=== PATIENT | male | born 1980 | race Caucasian/White ===

== ENCOUNTER 2017-11-06 18:58 | Emergency (ER) | payer MEDICAID ==
[~2017-11-06] VITALS: Ht 177.8 cm; Wt 88.5 kg
[~2017-11-06 18:58] MED LIST: IBUP-23 PO
[2017-11-06 19:05] VITALS: BP_SYST 154
[2017-11-06] MEDS ORDERED: KETOROLAC TROMETHAMINE 30 MG VIAL IVP ONE (19:45)
[2017-11-06] MEDS ORDERED: NACL 0.9% 1,000 ML IV ONE (19:45)
[2017-11-06 20:58] VITALS: BP_SYST 143
== END 2017-11-06 20:58 | disposition home or self-care (01) ==
LOC: SED 18:58
DX: J02.8 Acute pharyngitis due to other specified organisms (principal); B97.89 Other viral agents as the cause of diseases classified elsewhere; R03.0 Elevated blood-pressure reading, without diagnosis of hypertension; G43.909 Migraine, unspecified, not intractable, without status migrainosus
CPT/HCPCS: 36415; 86403; 86710; 87081; 96361; 96374; 99284; J1885; J7030

== ENCOUNTER 2019-03-11 16:08 | Emergency (ER) | payer MEDICAID ==
[~2019-03-11] VITALS: Ht 177.8 cm; Wt 88.5 kg
[2019-03-11 16:10] VITALS: BP_SYST 160
--- NOTE | 2019-03-11 16:10 | NUR ---
BROUGHT BACK TO HALLWAY BED AND TRIAGED. REPORT GIVEN TO DAVID
--- NOTE | 2019-03-11 16:26 | NUR ---
Patient brought in by . Patient ambulated to bedside [facility]. Complaining of pain to left greater toe starting today after cinder blocks fell on it. Pain 10/10. No range of motion noted. Mild swelling noted. No other complaints/injuries per patient or as noted. Will continue to monitor.
--- NOTE | 2019-03-11 16:46 | NUR ---
LINH Kelly at bedside examining patient.
[2019-03-11] MEDS ORDERED: HYDROcodone/ACETAMIN 5-325 MG TAB (NORCO/ VICODIN) PO ONE (17:00)
--- NOTE | 2019-03-11 17:00 | NUR ---
orthoshoe was applied on left foot
[2019-03-11 17:04] VITALS: BP_SYST 132
--- NOTE | 2019-03-11 17:04 | NUR ---
Patient given written and verbal discharge instructions and verbalizes understanding. ER MD pham discussed with patient the results and treatment provided. Patient in stable condition. ID arm band removed. Rx of Ibuprofen given. Patient educated on pain management and to follow up with PMD in 2-3 days. Pain Scale 4/10, improved sent with prescription for ibuprofen. Opportunity for questions provided and answered. Medication side effect fact sheet provided.
== END 2019-03-11 17:04 | disposition home or self-care (01) ==
LOC: SED 16:08
DX: S92.422A Displaced fracture of distal phalanx of left great toe, initial encounter for closed fracture (principal); W20.8XXA Other cause of strike by thrown, projected or falling object, initial encounter; Y93.89 Activity, other specified; Y92.89 Other specified places as the place of occurrence of the external cause; Y99.8 Other external cause status
CPT/HCPCS: 99283

== ENCOUNTER 2019-09-27 11:21 | Emergency (ER) | payer MEDICAID ==
[~2019-09-27] VITALS: Ht 177.8 cm; Wt 95.3 kg
[2019-09-27 11:27] VITALS: BP_SYST 141
--- NOTE | 2019-09-27 11:27 | NUR ---
Patient triaged and placed in waiting room. VSS and patient appears in no acute distress at this time. Accompanied by Son, awaiting available bed, and MD notified of need for MSE.
== END 2019-09-27 12:25 | disposition left against medical advice (07) ==
LOC: SED 11:21
DX: R50.9 Fever, unspecified (principal); Z53.21 Procedure and treatment not carried out due to patient leaving prior to being seen by health care provider
CPT/HCPCS: 36415; 86710

== ENCOUNTER 2019-11-16 18:09 | Emergency (ER) | payer MEDICAID ==
[~2019-11-16] VITALS: Ht 177.8 cm; Wt 95.3 kg
[2019-11-16 18:22] VITALS: BP_SYST 169
[2019-11-16] MEDS ORDERED: ASPIRIN 81 MG TAB.CHEW PO ONE (18:30)
[2019-11-16] MEDS ORDERED: LORazepam 2 MG/ML VIAL IVP ONE (18:30)
[2019-11-16 18:42] LABS: BASOPHILS # (AUTO) 0.1 K/uL (0.0-0.2); BASOPHILS % (AUTO) 0.6 % (0.0-2.0); EOSINOPHILS # (AUTO) 0.2 K/uL (0.0-0.4); EOSINOPHILS % (AUTO) 1.7 % (0.0-4.0); HEMATOCRIT 46.8 % (36-54); LYMPHOCYTES # (AUTO) 3.3 K/uL (1.0-5.5); LYMPHOCYTES % (AUTO) 33.7 % (20.5-51.5); MEAN CORPUSCULAR HEMOGLOBIN 32 pg (27-31); MEAN CORPUSCULAR HGB CONC 34 % (32-36); MEAN CORPUSCULAR VOLUME 95 fL (79.0-98.0); MONOCYTES # (AUTO) 0.6 K/uL (0.0-1.0); MONOCYTES % (AUTO) 6.2 % (1.7-9.3); NEUTROPHILS # (AUTO) 5.6 K/uL (1.8-7.7); NEUTROPHILS % (AUTO) 57.8 % (40.0-70.0); PLATELET COUNT (AUTO) 426 K/uL (130-430); RED BLOOD CELL COUNT(AUTO) 4.94 MIL/uL (4.2-6.2); RED CELL DISTRIBUTION WIDTH 13.4 % (9.0-15.0); WHITE BLOOD COUNT (AUTO) 9.7 K/uL (4.8-10.8)
[2019-11-16 18:55] LABS: CALCIUM 9.4 mg/dL (8.4-11.0); CREATININE 1.21 mg/dL (0.55-1.30); POTASSIUM 3.4 mmol/L (3.5-5.1)
[2019-11-16 19:01] LABS: ALBUMIN 4.4 g/dL (3.4-4.8); TOTAL BILIRUBIN 0.5 mg/dL (0.0-1.0)
[2019-11-16 20:00] VITALS: BP_SYST 135
== END 2019-11-16 20:00 | disposition home or self-care (01) ==
LOC: SED 18:09
DX: F41.9 Anxiety disorder, unspecified (principal); I10 Essential (primary) hypertension; E78.00 Pure hypercholesterolemia, unspecified; G47.00 Insomnia, unspecified
CPT/HCPCS: 36415; 71045; 80053; 82550; 84484; 85025; 93005; 96374; 99285; J2060

== ENCOUNTER 2020-06-09 19:40 | Emergency (ER) | payer MEDICAID ==
[~2020-06-09] VITALS: Ht 177.8 cm; Wt 85.3 kg
[2020-06-09 19:50] VITALS: BP_SYST 148
--- NOTE | 2020-06-09 19:50 | NUR ---
PT TRIAGED AND WAITING IN ER LOBBY FOR BED TO BECOME AVAILABLE.
--- NOTE | 2020-06-09 19:52 | NUR ---
PT AAO AND AMBULATORY C/O RIGHT FINGER PAIN FROM FOREIGN BODY. PT REPORTS WHILE STARTING HIS [employer] HE HIT HIS RIGHT HAND ONTO A CACTUS. PT REPORTS PAIN /.
--- NOTE | 2020-06-09 21:51 | NUR ---
Patient to ER bed 7 to gown for evaluation. Side rails up.
--- NOTE | 2020-06-09 21:53 | NUR ---
REPORTS PAIN IN RIGHT MIDDLE FINGER AFTER HITTING HAND ON A CACTUS WHILE MOWING THE LAWN. NO REDNESS OR SWELLING NOTED. PT BELIEVES THERE MAY BE A PIECE STUCK UNDER THE SKIN. NO VISIBLE FOREIGN BODY SEEN IN FINGER UPON INSPECTION. AAOX4, V/S STABLE
--- NOTE | 2020-06-09 22:07 | NUR ---
ER at bedside examining patient.
--- NOTE | 2020-06-09 22:08 | NUR ---
DR. TEJEDA AT THE BEDSIDE EVALUTAING PT
[2020-06-09 22:38] VITALS: BP_SYST 133
--- NOTE | 2020-06-09 22:38 | NUR ---
PT ELOPED FROM ER REFUSED TO BE DISCHARCHED BASED ON MD RECOMMENDATION
[2020-06-10] MEDS ORDERED: LIDOCAINE 1%, 20 ML MDV 20 ML ONE (12:10)
== END 2020-06-09 22:38 | disposition left against medical advice (07) ==
LOC: SED 19:40
DX: M79.644 Pain in right finger(s) (principal)
CPT/HCPCS: 99284; J2001

== ENCOUNTER 2021-05-25 05:43 | Emergency (ER) | payer MEDICAID ==
[~2021-05-25] VITALS: Ht 177.8 cm; Wt 86.2 kg
[2021-05-25 05:50] VITALS: BP_SYST 159
[2021-05-25] MEDS ORDERED: MORPHINE 4 MG INJ. 4 MG/ML VIAL ONE (06:14)
[2021-05-25] MEDS ORDERED: ONDANSETRON HCL 4 MG/2 ML VIAL IVP ONE (06:15)
[2021-05-25] MEDS ORDERED: ONDANSETRON HCL 4 MG/2 ML VIAL ONE (06:15)
[2021-05-25] MEDS ORDERED: MORPHINE 4 MG INJ. 4 MG/ML VIAL IVP ONE (06:15)
[2021-05-25] MEDS ORDERED: NACL 0.9% 1,000 ML IV ONE (06:15)
[2021-05-25 06:40] LABS: ANION GAP 10 (5-15); CALCIUM 9.1 mg/dL (8.4-11.0); CHLORIDE 104 mmol/L (98-107); CREATININE 1.06 mg/dL (0.55-1.30); GLUCOSE 99 mg/dL (70-99); POTASSIUM 3.6 mmol/L (3.5-5.1); PROTHROMBIN TIME 10.4 SECS (9.5-12.5); SODIUM SERUM 141 mmol/L (136-145); UREA NITROGEN, BLOOD 16 mg/dL (8-21)
[2021-05-25 06:47] LABS: EOSINOPHILS # (AUTO) 0.2 K/uL (0.0-0.4); GFR AFRICAN AMERICAN 100 mL/min (>90); HEMOGLOBIN 15.5 g/dL (14.0-18.0)
[2021-05-25 06:50] LABS: BASOPHILS % (AUTO) 0.7 % (0.0-2.0); EOSINOPHILS % (AUTO) 2.5 % (0.0-4.0); LYMPHOCYTES # (AUTO) 2.5 K/uL (1.0-5.5); LYMPHOCYTES % (AUTO) 39.1 % (20.5-51.5); MEAN CORPUSCULAR HEMOGLOBIN 34 pg (27-31); MEAN CORPUSCULAR HGB CONC 35 % (32-36); MEAN CORPUSCULAR VOLUME 96 fL (79.0-98.0); MONOCYTES # (AUTO) 0.4 K/uL (0.0-1.0); MONOCYTES % (AUTO) 6.8 % (1.7-9.3); NEUTROPHILS # (AUTO) 3.3 K/uL (1.8-7.7); NEUTROPHILS % (AUTO) 50.9 % (40.0-70.0); PLATELET COUNT (AUTO) 270 K/uL (130-430); RED BLOOD CELL COUNT(AUTO) 4.61 MIL/uL (4.2-6.2); WHITE BLOOD COUNT (AUTO) 6.5 K/uL (4.8-10.8)
[2021-05-25 06:52] LABS: ALANINE AMINOTRANSFERASE 25 U/L (12-78); ALBUMIN 4.2 g/dL (3.4-4.8); ASPARTATE AMINOTRANSFERASE 17 U/L (10-37); LIPASE 136 U/L (73-393); TOTAL BILIRUBIN 0.9 mg/dL (0.0-1.0)
[2021-05-25] MEDS ORDERED: fentaNYL CITRATE/PF 100 MCG/2 ML AMP IVP ONE (07:15)
[2021-05-25 07:32] LABS: BILIRUBIN,URINE NEGATIVE (NEGATIVE); BLOOD, URINE NEGATIVE (NEGATIVE); CLARITY/URINE CLEAR (CLEAR); COLOR,URINE YELLOW (YELLOW); GLUCOSE,URINE NEGATIVE (NEGATIVE); KETONES,URINE NEGATIVE (NEGATIVE); LEUKOCYTE ESTERASE ,URINE NEGATIVE (NEGATIVE); NITRITE, URINE NEGATIVE (NEGATIVE); PH,URINE 6.5 (5.0-8.0); PROTEIN URINE NEGATIVE (NEGATIVE); UROBILINOGEN,URINE 0.2 (0.2-1.0)
[2021-05-25] MEDS ORDERED: AMOX-426 PO (09:12)
[2021-05-25] MEDS ORDERED: DOCU-144 PO (09:12)
[2021-05-25 09:44] VITALS: BP_SYST 141
== END 2021-05-25 09:47 | disposition home or self-care (01) ==
LOC: SED 05:43
DX: K62.5 Hemorrhage of anus and rectum (principal); R10.30 Lower abdominal pain, unspecified; I10 Essential (primary) hypertension; Z79.899 Other long term (current) drug therapy
CPT/HCPCS: 36415; 74177; 76376; 80053; 81003; 83690; 84484; 85025; 85610; 93005; 96361; 96374; 96375; 99285; J2270; J2405; J3010; J7030; Q9967

== ENCOUNTER 2021-08-30 21:56 | Emergency (ER) | payer MEDICAID ==
[~2021-08-30] VITALS: Ht 177.8 cm; Wt 86.2 kg
[~2021-08-30 21:56] MED LIST changes: +AMOX-426 PO; +DOCU-144 PO
[2021-08-30 22:05] VITALS: BP_SYST 152
[2021-08-30 23:43] VITALS: BP_SYST 152
== END 2021-08-30 23:43 | disposition home or self-care (01) ==
LOC: SED 21:56
DX: S92.421A Displaced fracture of distal phalanx of right great toe, initial encounter for closed fracture (principal); I10 Essential (primary) hypertension; Z79.899 Other long term (current) drug therapy; W22.8XXA Striking against or struck by other objects, initial encounter; Y93.89 Activity, other specified; Y92.89 Other specified places as the place of occurrence of the external cause; Y99.8 Other external cause status
CPT/HCPCS: 99283